=== PATIENT | female | born 1985 | race Caucasian/White ===

== ENCOUNTER 2016-10-13 08:44 | Emergency (ER) | payer SELFPAY ==
[2016-10-13 08:53] VITALS: BP 124/66; PULSE 72; RESP 16; TEMP 98.9; O2SAT 100
[2016-10-13 08:54] VITALS: BMI 28.1
--- NOTE | 2016-10-13 09:23 | ED PDOC ---
HPI: Headache Time Seen by Provider: 10/13/16 08:57 History Per: Patient (states that she has had right sided headaches for the past 3 days that is associated with nausea and pain over the right face anteriorly. she took tylenol last night with some improvement. ) History/Exam Limitations: no limitations Onset/Duration Of Symptoms: Days (3), Gradual, Persistent Current Symptoms Are (Timing): Still Present Severity: Moderate Quality: Dull, Aching Preceeding Symptoms: None. denies: Visual Disturbances Associated Symptoms: Nausea. denies: Photophobia, Blurred Vision, Vomiting, Extremity Weakness Past Medical History Reviewed: Historical Data, Nursing Documentation, Vital Signs Vital Signs: Last Vital Signs Temp 98.9 F 10/13/16 08:51 Pulse 72 10/13/16 08:51 Resp 16 10/13/16 08:51 BP 124/66 10/13/16 08:51 Pulse Ox 100 10/13/16 08:51 - Medical History PMH: No Chronic Diseases - Surgical History Surgical History: No Surg Hx - Family History Family History: Denies: Stroke ([place] palsy) - Living Arrangements Living Arrangements: With Family - Home Medications Home Medications: Ambulatory Orders Medication Instructions Recorded Ca/Cholecalciferol/Fe/Folic 1 1 tab PO DAILY #0 tab 10/10/14 [Basic's Vitamins] Ferrous Sulfate [Feosol] 324 mg PO BID #0 ect 10/10/14 Ibuprofen [Motrin Tab] 600 mg PO Q6 PRN #0 tab 10/10/14 Sennosides A and B [Senokot Tab] 17.2 mg PO HS #0 tab 10/10/14 Fluticasone Propionate [Flonase] 4 spr IN DAILY #1 bottle 10/13/16 Guaifenesin/Pseudoephedrne HCl 1 ter PO Q12H PRN #10 ter 10/13/16 [Mucinex D 600 mg-60 mg] Naproxen [Naprosyn] 500 mg PO BID PRN #20 tablet 10/13/16 - Allergies Allergies/Adverse Reactions: Allergies Allergy/AdvReac Type Severity Reaction Status Date / Time No Known Allergies Allergy Unverified 07/28/14 12:55 Review of Systems ROS Statement: Except As Marked, All Systems Reviewed And Found Negative Respiratory: Negative for: Cough Genitourinary Female: Negative for: Dysuria Musculoskeletal: Negative for: Neck Pain Neurological: Negative for: Weakness, Numbness, Incoordination, Confusion, Seizures, Altered Mental Status, Dizziness Physical Exam - Reviewed Nursing Documentation Reviewed: Yes Vital Signs Reviewed: Yes - Physical Exam Appears: Positive for: Well, Non-toxic, No Acute Distress Head Exam: Positive for: ATRAUMATIC, NORMAL INSPECTION, NORMOCEPHALIC Skin: Positive for: Normal Color, Warm, DRY Eye Exam: Positive for: EOMI, Normal appearance, PERRL ENT: Positive for: Normal ENT Inspection (tenderness in the Right maxillary sinuses) Neck: Positive for: Normal, Painless ROM Cardiovascular/Chest: Positive for: Regular Rate, Rhythm Respiratory: Positive for: CNT, Normal Breath Sounds Gastrointestinal/Abdominal: Positive for: Normal Exam, Bowel Sounds, Soft Back: Positive for: Normal Inspection Extremity: Positive for: Normal ROM Neurologic/Psych: Positive for: Alert, Oriented - ECG O2 Sat by Pulse Oximetry: 100 Disposition - Clinical Impression Clinical Impression: Headache, Sinus pain - Patient ED Disposition Is Patient to be Admitted: No Doctor Will See Patient In The: Office - Disposition Referrals: Chirag Faust MD [Primary Care Provider] - Disposition: Routine/Home Disposition Time: 09:38 Condition: STABLE Prescriptions: Fluticasone Propionate [Flonase] 4 spr IN DAILY #1 bottle Guaifenesin/Pseudoephedrne HCl [Mucinex D 600 mg-60 mg] 1 ter PO Q12H PRN #10 ter PRN Reason: cough/congestion Naproxen [Naprosyn] 500 mg PO BID PRN #20 tablet PRN Reason: Pain, Moderate (4-7) Instructions: Acute Headache (ED) Print Language: BENGALI - POA Present On Arrival: None
== END 2016-10-13 09:56 | disposition home or self-care (01) ==
LOC: SUPCPDRO 08:44 → H.ER 08:44
DX: J32.9 Chronic sinusitis, unspecified (principal)

== ENCOUNTER 2017-11-12 06:16 | Emergency (ER) | payer OTHER ==
[2017-11-12 06:31] VITALS: BMI 28.0
--- NOTE | 2017-11-12 08:05 | ED PDOC ---
Lower Extremity Pain/Injury Time Seen by Provider: 11/12/17 07:10 Chief Complaint (Nursing): Lower Extremity Problem/Injury Chief Complaint (Provider): Right Ankle Pain History Per: Patient History/Exam Limitations: no limitations Onset/Duration Of Symptoms: Days (2) Current Symptoms Are (Timing): Still Present Severity: None Pain Scale Rating Of: 10 Additional Complaint(s): 32 year old female presents to the emergency department complaining of right ankle pain. Patient reports that yesterday she while playing basketball she fell twisting his ankle. She reports that she took tylenol for pain which offered minimal relief. Denies numbness/tingling, foot pain, calf pain, head injury. - Knee Description Of Injury: Twisted Currently Unable To: Bear Weight Alleviating Factor(s): Ice Therapy, Elevation, OTC Pain Medication Past Medical History Reviewed: Historical Data, Nursing Documentation, Vital Signs Vital Signs: Last Vital Signs Temp 98.3 F 11/12/17 06:34 Pulse 72 11/12/17 06:34 Resp 16 11/12/17 06:34 BP 107/67 11/12/17 06:34 Pulse Ox 97 11/12/17 06:34 - Medical History PMH: No Chronic Diseases - Surgical History Surgical History: No Surg Hx - Family History Family History: Denies: Stroke ([place] palsy) - Social History Current smoker - smoking cessation education provided: No Alcohol: None Drugs: Denies - Home Medications Home Medications: Ambulatory Orders Medication Instructions Recorded Ibuprofen [Motrin] 600 mg PO TID 7 Days tab 11/12/17 - Allergies Allergies/Adverse Reactions: Allergies Allergy/AdvReac Type Severity Reaction Status Date / Time No Known Allergies Allergy Unverified 11/12/17 06:30 Review of Systems Musculoskeletal: Positive for: Other (right ankle pain). Negative for: Leg Pain , Foot Pain Physical Exam - Reviewed Nursing Documentation Reviewed: Yes Vital Signs Reviewed: Yes - Physical Exam Appears: Positive for: Non-toxic, No Acute Distress Head Exam: Positive for: ATRAUMATIC, NORMAL INSPECTION, NORMOCEPHALIC Skin: Positive for: Normal Color, Warm, Dry. Negative for: Rash Pulses-Dorsalis Pedis (L): 2+ Pulses-Dorsalis Pedis (R): 2+ Extremity: Positive for: Normal ROM (limited ROM of right ankle secondary to pain), Tenderness (lateral right ankle tenderness), Swelling (lateral right ankle swelling). Negative for: Deformity Neurologic/Psych: Positive for: Alert, Oriented - ECG O2 Sat by Pulse Oximetry: 97 (RA) Pulse Ox Interpretation: Normal - Radiology X-Ray: Interpreted by Me, Viewed By Me X-Ray Interpretation: No Acute Disease - CT Scan/US MRI Other Rad Studies (CT/US): Read By Radiologist Other Rad Interpretation: ATFL tear - Progress ED Course And Treament: 1043: Podiatry saw pt. They want a MRI. Pt. has no calf tenderness. Pulses 2 + dorsalis pedis and tibialis. No sensory changes to ankle or calf. Pain is not out of proportion, pt. resting comfortably. Has full ROM of ankle. 1555: Stable. AAOx3. Pain controlled. Podiatry reviewed MRI with Dr. Cool. Will fu with him 3-4 days. No weight on foot. Crutches. They will splint. Medical Decision Making Medical Decision Makin Initial Impression 32 year old female presenting with right ankle pain Initial plan: * Upreg * Motrin tab 600 mg PO * RAD right ankle pain * Reevaluation 921 PROCEDURE: Right Ankle Radiographs. HISTORY: pain COMPARISON: None FINDINGS: BONES: Normal. No fracture. . Tiny plantar surface calcaneal enthesophyte JOINTS: Normal. No osteoarthritis. Ankle mortise maintained. Talar dome intact SOFT TISSUES: Mild soft tissue swelling over the lateral malleolus there also appears be a small joint effusion. OTHER FINDINGS: None. IMPRESSION: No evidence of acute displaced fracture nor dislocation. Mild soft tissue swelling over the lateral malleolus with small joint effusion. If symptoms persist or occult fracture suspected clinically consider repeat radiographs 7- 10 days as most fractures should become radiographically evident in this timeframe. ------- Documented by Mitra Pavon acting as a scribe for Aldo Arora MD. All medical record entries made by the Scribe were at my direction and personally dictated by me. I have reviewed the chart and agree that the record accurately reflects my personal performance of the history, physical exam, medical decision making, and the department course for this patient. I have also personally directed, reviewed, and agree with the discharge instructions and disposition. Disposition - Clinical Impression Clinical Impression: Ligament tear - Patient ED Disposition Is Patient to be Admitted: No Counseled Patient/Family Regarding: Studies Performed, Diagnosis, Need For Followup, Rx Given - Disposition Referrals: Richard Cool III, MD [Staff Provider] - 11/15/17 Disposition: Routine/Home Disposition Time: 10:00 Condition: STABLE Additional Instructions: Return if not better in 3 days. You have a ligament tear. Make sure to see the orthopedic doctor without fail in 3 days. Prescriptions: Ibuprofen [Motrin] 600 mg PO TID 7 Days tab Instructions: Ankle Sprain (DC) Forms: [facility] ED School/Work Excuse, [facility] (Czech) Print Language: SAMI
--- NOTE | 2017-11-12 09:24 | RAD ---
Date of service: 11/12/2017 PROCEDURE: Right Ankle Radiographs. HISTORY: pain COMPARISON: None FINDINGS: BONES: Normal. No fracture. . Tiny plantar surface calcaneal enthesophyte JOINTS: Normal. No osteoarthritis. Ankle mortise maintained. Talar dome intact SOFT TISSUES: Mild soft tissue swelling over the lateral malleolus there also appears be a small joint effusion. OTHER FINDINGS: None. IMPRESSION: No evidence of acute displaced fracture nor dislocation. Mild soft tissue swelling over the lateral malleolus with small joint effusion. If symptoms persist or occult fracture suspected clinically consider repeat radiographs 7-10 days as most fractures should become radiographically evident in this timeframe.
--- NOTE | 2017-11-12 11:40 | CP.PCM.CON ---
History of Present Illness - History of Present Illness History of Present Illness: Podiatry consult note for attending Dr. Cool 32 y/o female with no significant PMHx was seen and evaluated in the emergency Department for right ankle pain and swelling. Patient reports she fell and twisted her right ankle while playing basketball. Patient states she iced the foot, and took Tylenol for the pain. Patient reports the swelling worsened overnight. Patient reports of pain when ambulating and movement of the ankle. Patient denies any other pedal complaints and denies N/V/F/SOB/Chills PMHx: none PSHx: none ALL: none SHx: Pt denies smoking tobacco use or drinking alcohol Review of Systems - Review of Systems All systems: reviewed and no additional remarkable complaints except Review of Systems: As per HPI Past Patient History - Infectious Disease Hx of Infectious Diseases: None - Past Social History Alcohol: None Drugs: Denies - PSYCHIATRIC Hx Substance Use: No - SURGICAL HISTORY Hx Surgeries: No Meds Allergies/Adverse Reactions: Allergies Allergy/AdvReac Type Severity Reaction Status Date / Time No Known Allergies Allergy Unverified 11/12/17 06:30 Physical Exam - Constitutional Appears: Well, Non-toxic, No Acute Distress - Head Exam Head Exam: ATRAUMATIC, NORMOCEPHALIC - Extremities Exam Additional comments: Bilateral Lower Extremity Exam VASC: DP and PT 2/4 bilaterally; CFT less than 3 seconds X 10; TG warm to cool proximal to distal; non-pitting edema noted to the right lateral ankle NEURO: Epicritic and protective sensations intact DERM: ecchymosis and non-pitting edema noted to the right lateral ankle, no open lesions, no clinical signs of infection ORTHO: severe pain on palpation to the lateral ankle anteriorly at the ATFL, posteriorly at the PTFL, and at the CFL, patient guarding with range of motion and able to perform minimal ankle dorsiflexion and plantarflexion, pain with Anterior drawer test, pain with inversion > eversion - Neurological Exam Neurological exam: Alert, Oriented x3 - Psychiatric Exam Psychiatric exam: Normal Affect, Normal Mood Results - Vital Signs Recent Vital Signs: Last Vital Signs Temp 98.2 F 11/12/17 11:19 Pulse 63 11/12/17 11:19 Resp 16 11/12/17 11:19 BP 104/56 L 11/12/17 11:19 Pulse Ox 96 07/10/18 11:19 Assessment & Plan - Assessment and Plan (Free Text) Assessment: 32 y/o female with no significant PMHx was seen and evaluated in the emergency Department for right ankle pain and swelling Plan: Patient seen and evaluated for attending, Dr. Cool Plan discussed with attending, Dr. Cool Reviewed Patient Imaging Ankle X-rays- mild soft tissue swelling over the lateral malleolus with small joint effusion, no fracture, ankle mortise maintained, talar dome intact Right Lower Extremity MRI- 1. Prominent lateral malleolar soft tissue swelling 2. complete rupture of the anterior talofibular ligament 3. moderate grade sprain of the PTFL, reactive edema suggestive for bone burising at the posterior talus at the attachment of the PTFL 4. minimal reactive bone marrow edema suggestive of bone bruising at the posterior aspect of the navicular bone at its articulation with the talus 5. reactive bone marrow edema seen within the distal fibula as within the posterior talus suggestive of bone bruising 6. moderate tenosynovitis of posterior tibial tendon sheath 7. mild plantar calcaneal spurring with thickening of the plantar fascia 8. moderate ankle joint effusion 9. degenerative change noted at talonavicular joint space with some bone hypertrophy 10. deltoid ligament low grade sprain Patient was placed in a posterior splint, and strongly advised to be NON WEIGHT- BEARING to the right lower extremity Patient was provided with crutches and taught how to use crutches Patient imaging was reviewed with the patient and patient demonstrated verbal understanding Patient will follow up with Dr. Cool in his office, patient to call and make an appointment Thank you for the Podiatry consult Podiatry will continue to follow the patient - Date & Time Date: 11/12/17 Time: 16:09
--- NOTE | 2017-11-12 15:13 | MRI ---
MRI right ankle History: Ankle pain. Ankle injury. Comparison: None available. Technique: Multi-echo multiplanar sequences were performed through the right ankle without the use of intravenous contrast. Findings: Prominent lateral malleolar soft tissue swelling. Anterior extensor tendons are preserved. Moderate tenosynovitis of the posterior tibial tendon sheath. Remainder of the medial flexor tendons are preserved. Peroneal tendons are preserved. Anterior and posterior tibiofibular ligament/syndesmosis is preserved. Complete rupture of the anterior talofibular ligament. Moderate grade sprain of the posterior talofibular ligament. Reactive edema suggestive for bone bruising at the posterior talus at the attachment of the posterior talofibular ligament. Minimal reactive bone marrow edema suggestive for bone bruising and or subchondral osseous injury at the posterior aspect of the navicular bone at its articulation with the talus. Achilles tendon is preserved. Mild plantar calcaneal spurring with thickening of the plantar fascia measuring up to 7 millimeters which may represent a mild plantar fasciitis. Clinical correlation. Sinus tarsi is preserved. Moderate ankle joint effusion. Reactive bone marrow edema seen within the distal fibula as well as within the posterior lateral talus suggestive for bone bruising and or subchondral osseous injury. Mild reactive edema seen within the posterior aspect of the cuboid bone near its articulation with the calcaneus. Degenerative changes noted at talonavicular joint space with some bony hypertrophy. Mild increased signal seen within the deep fibers of the deltoid ligament suggestive for a low grade sprain. 4 millimeter subchondral cyst formation noted within the mid calcaneus. Impression: 1. Prominent lateral malleolar soft tissue swelling. 2. Complete rupture of the anterior talofibular ligament. 3. Moderate grade sprain of the posterior talofibular ligament. Reactive edema suggestive for bone bruising at the posterior talus at the attachment of the posterior talofibular ligament. 4. Minimal reactive bone marrow edema suggestive for bone bruising and or subchondral osseous injury at the posterior aspect of the navicular bone at its articulation with the talus. 5. Reactive bone marrow edema seen within the distal fibula as well as within the posterior lateral talus suggestive for bone bruising and or subchondral osseous injury. Mild reactive edema seen within the posterior aspect of the cuboid bone near its articulation with the calcaneus. 6. Moderate tenosynovitis of the posterior tibial tendon sheath. 7. Mild plantar calcaneal spurring with thickening of the plantar fascia measuring up to 7 millimeters which may represent a mild plantar fasciitis. Clinical correlation. 8. Moderate ankle joint effusion. 9. Degenerative changes noted at talonavicular joint space with some bony hypertrophy. 10. Mild increased signal seen within the deep fibers of the deltoid ligament suggestive for a low grade sprain. 11. 4 millimeter subchondral cyst formation noted within the mid calcaneus.
[2017-11-12 16:13] VITALS: BP 122/68; PULSE 69; RESP 19; TEMP 98.4; O2SAT 99
== END 2017-11-12 16:14 | disposition home or self-care (01) ==
LOC: H.ER 06:16
DX: S93.401A Sprain of unspecified ligament of right ankle, initial encounter (principal); X50.1XXA Overexertion from prolonged static or awkward postures, initial encounter; Y93.67 Activity, basketball; M65.9 Synovitis and tenosynovitis, unspecified; M77.31 Calcaneal spur, right foot

== ENCOUNTER 2018-07-23 12:03 | Emergency (ER) | payer OTHER ==
[2018-07-23 12:03] VITALS: BMI 28.0
[2018-07-23 12:25] VITALS: BP 112/74; PULSE 59; RESP 18; TEMP 98.7; O2SAT 99
--- NOTE | 2018-07-23 13:00 | ED PDOC ---
HPI: General Adult Time Seen by Provider: 07/23/18 12:38 Chief Complaint (Nursing): GI Problem Chief Complaint (Provider): Cough, Cold, Congestion History Per: Patient, [employer] (debbirachid # [id number]) History/Exam Limitations: no limitations Onset/Duration Of Symptoms: Days (3x) Current Symptoms Are (Timing): Still Present Severity: Moderate Additional Complaint(s): 33 year old female with no pertinent past medical history presents to the ED for an evaluation of nasal congestion and cold-like symptoms that started 2x days ago. Patient states that today at work she started experiencing nausea and dizziness. Patient states that when she walks she feels weak and as if she might fall down. Patient states that she continues to be nauseous. Patient reports having a headache this morning, for which she took a tylenol with relief. Patient currently denies having a headache. Patient reports having a sick contact at home with similar symptoms. Otherwise: (-) recent travel, (-) fevers, (-) visual changes, (-) syncope, (-) chest pain, (-) abdominal pain, (-) urinary symptoms. Last know menstrual period: 06/24/2018. Has nexplanon implant. PMD: None provided. Past Medical History Reviewed: Historical Data, Nursing Documentation, Vital Signs Vital Signs: Last Vital Signs Temp 98.7 F 07/23/18 12:22 Pulse 59 L 07/23/18 12:22 Resp 18 07/23/18 12:22 BP 112/74 07/23/18 12:22 Pulse Ox 99 07/23/18 12:22 INES Report Viewed: Yes - Medical History PMH: No Chronic Diseases - Family History Family History: Denies: Stroke ([place] palsy) - Social History Current smoker - smoking cessation education provided: No Alcohol: None Drugs: Denies - Home Medications Home Medications: Ambulatory Orders Medication Instructions Recorded Ibuprofen [Motrin] 600 mg PO TID 7 Days tab 11/12/17 Amoxicillin/Clavulanate [Augmentin 1 tab PO BID 7 Days #14 tab 07/23/18 875 MG-125 MG] Ondansetron ODT [Zofran ODT] 4 mg PO TID PRN #12 odt 07/23/18 - Allergies Allergies/Adverse Reactions: Allergies Allergy/AdvReac Type Severity Reaction Status Date / Time No Known Allergies Allergy Unverified 07/23/18 12:25 Review of Systems ROS Statement: Except As Marked, All Systems Reviewed And Found Negative Constitutional: Negative for: Fever Eyes: Negative for: Vision Change ENT: Positive for: Nose Congestion Cardiovascular: Negative for: Chest Pain Gastrointestinal: Positive for: Nausea. Negative for: Abdominal Pain Genitourinary Female: Negative for: Other (urinary symptoms) Neurological: Positive for: Dizziness. Negative for: Other (syncope) Physical Exam - Reviewed Nursing Documentation Reviewed: Yes Vital Signs Reviewed: Yes - Physical Exam Comments: GENERAL APPEARANCE: Patient is awake, alert, oriented x 3, well, appearing, in no obvious discomfort. HEAD: atraumatic SKIN: Warm, dry; (-) cyanosis. EYES: (-) conjunctival pallor. EOMI, PERRLA. ENMT: (+) fluid behind bilateral TM. (+) audible nasal congestion. (+) bilateral maxillary sinus tenderness. Mucous membranes moist. Airway patent: (-) stridor. Pharynx: (-) swelling, (-) erythema, (-) exudate. NECK: (-) tenderness, (-) stiffness, (-) lymphadenopathy. Full ROM, (-) meningismus. CHEST AND RESPIRATORY: (-) rhonchi, (-) rales, (-) wheezes, (-) pleural rub; breath sounds equal bilaterally. HEART AND CARDIOVASCULAR: (-) irregularity; (-) murmur, (-) gallop. ABDOMEN AND GI: Soft; (-) tenderness. EXTREMITIES: (-) deformity; (-) edema. NEURO AND PSYCH: Mental status as above. Cranial nerves grossly intact; strength symmetric. Motor/sensory: normal steady gait. - ECG O2 Sat by Pulse Oximetry: 99 (RA) Pulse Ox Interpretation: Normal Medical Decision Making Medical Decision Makin:38 Clinical impression: 33 year old female with sinusitis Initial plan: * upreg * motrin tab 400 mg PO once * zofran 4 mg PO once * reevaluation * 13:25 On re eval pt is feeling better, asymptomatic at this time, no nausea or dizziness, tolerating PO without difficulty Pt relieved to find out negative u preg, Will treat pt for sinusitis with antibiotics Discussed results, diagnosis, treatment, return precautions and follow up with pt who is understanding, in agreement and stable for dc Scribe Attestation: Documented by Luciana Carreon, acting as a scribe for Hawk Rebolledo PA-C. Provider Scribe Attestation: All medical record entries made by the Scribe were at my direction and person ally dictated by me. I have reviewed the chart and agree that the record accurately reflects my personal performance of the history, physical exam, medical decision making, and the department course for this patient. I have also personally directed, reviewed, and agree with the discharge instructions and disposition. Disposition - Clinical Impression Clinical Impression: Sinusitis, Nausea - Patient ED Disposition Is Patient to be Admitted: No Counseled Patient/Family Regarding: Studies Performed, Diagnosis, Need For Followup, Rx Given - Disposition Referrals: [facility] [Outside] Disposition: Routine/Home Disposition Time: 13:25 Condition: STABLE Additional Instructions: Volver a la ED para los sntomas nuevos o empeoramiento, fiebre > 100,4, cambios en la visin, dificultad para caminar, dolor abdominal. Seguimiento con la clnica en 5-7 sow. Lyudmila los medicamentos recetados. maikol Jacobso lquido. Return to ED for new or worsening symptoms, fever >100.4, changes in vision, difficulty walking, abdominal pain. Follow up with the clinic in 5-7 days. Take medications a prescribed. Rest, drink plenty of fluids. Prescriptions: Amoxicillin/Clavulanate [Augmentin 875 MG-125 MG] 1 tab PO BID 7 Days #14 tab Ondansetron ODT [Zofran ODT] 4 mg PO TID PRN #12 odt PRN Reason: Nausea/Vomiting Instructions: Sinusitis in Adults, Nausea and Vomiting, Adult (DC) Forms: [facility] (Ugandan), [facility] ED School/Work Excuse Print Language: KOREAN - POA Present On Arrival: None
== END 2018-07-23 13:49 | disposition home or self-care (01) ==
LOC: H.ER 12:03
DX: R11.0 Nausea (principal); J32.9 Chronic sinusitis, unspecified